=== PATIENT | male | born 1955 | race Caucasian/White ===

== ENCOUNTER 2016-12-04 11:51 | Emergency (ER) | payer OTHER ==
[2016-12-04 12:01] VITALS: O2SAT 97
[2016-12-04] MEDS ORDERED: Lopressor 25MG Tab PO ONE ×2 (12:28→12:32)
[2016-12-04] MEDS ORDERED: Zestril 5 MG PO STA (12:30)
[2016-12-04] MEDS ORDERED: Lopressor 25MG Tab ONE (12:34)
--- NOTE | 2016-12-04 12:36 | ERPHSYRPT ---
- History of Present Illness Time Seen by Provider: 12/04/16 12:22 Source: patient Exam Limitations: no limitations Patient Subjective Stated Complaint: Pt states he blew his nose this morning and it started bleeding. It started a little after 8 this morning and has not stopped. He called the [facility]ICU NURSE at the [facility] and was told to put ice on the bridge of his nose and if this didnt stop to come to the ER. He takes a 325 mg asa and 75 mg Plavix. Triage Nursing Assessment: Pt alert and oriented x3. skin pink warm and dry. afebrile. left side of nostril bleeding upon arrival. denies pain Physician History: Patient arrives with complaint of bleeding from his left naris since this morning. Patient states he blew his nose and began to have bleeding from his left naris he states he called his work nurse practitioner they told him to place cold packs on the area however he continues to have bleeding. Patient does states that he did not take his blood pressure medicines this morning. Past medical history includes hypercholesterolemia myocardial infarction high blood pressure hemorrhoids Past surgical history includes CABG cardiac stent hernia repair Social history occasional alcohol. Timing/Duration: today Severity: mild Modifying Factors: Improves With: other (patient is on aspirin and Plavix) Associated Symptoms: other (nosebleed), No nausea, No vomiting, No abdominal pain, No shortness of breath, No heartburn, No diaphoresis, No cough, No chills , No chest pain, No fever, No headaches, No loss of appetite, No malaise, No rash, No syncope, No seizure, No weakness Allergies/Adverse Reactions: milk Allergy (Verified 12/04/16 12:01) shellfish derived Allergy (Verified 12/04/16 12:01) loose stools Home Medications: Lisinopril 5 mg [Zestril 5 MG] 5 mg PO DAILY 09/17/14 [History] Metoprolol Tartrate 25 mg [Lopressor 25MG Tab] 12.5 mg PO BID 09/17/14 [ History] Simvastatin 40 mg [Zocor 40 mg] 40 mg PO DAILY 09/17/14 [History] Aspirin EC 325 mg [Ecotrin 325 MG] 325 mg PO DAILY 12/04/16 [History] Clopidogrel Bisulfate 75 mg [PLAVIX 75 MG Tablet] 75 mg PO DAILY 12/04/16 [History] Hx Tetanus, Diphtheria Vaccination/Date Given: Yes Hx Influenza Vaccination/Date Given: Yes Hx Pneumococcal Vaccination/Date Given: No - Review of Systems Constitutional: No Fever, No Chills Eyes: No Symptoms Ears, Nose, & Throat: Epistaxis, No Ear Pain, No Ear Discharge, No Hearing Changes, No Tinnitus, No Nose Pain, No Nose Congestion, No Nose Discharge, No Sinus Drainage, No Mouth Pain, No Mouth Swelling, No Loose Teeth, No Throat Pain , No Throat Swelling, No Hoarse, No Painful Swallowing, No Snoring Respiratory: No Cough, No Dyspnea Cardiac: No Chest Pain, No Edema, No Syncope Abdominal/Gastrointestinal: No Abdominal Pain, No Nausea, No Vomiting, No Diarrhea Genitourinary Symptoms: No Dysuria Musculoskeletal: No Back Pain, No Neck Pain Skin: No Rash Neurological: No Dizziness, No Focal Weakness, No Sensory Changes Psychological: No Symptoms Endocrine: No Symptoms All Other Systems: Reviewed and Negative - Past Medical History Pertinent Past Medical History: Yes Neurological History: No Pertinent History ENT History: No Pertinent History Cardiac History: High Cholesterol, Hypertension, Myocardial Infarction ([place]) Respiratory History: No Pertinent History Endocrine Medical History: No Pertinent History Musculoskeletal History: No Pertinent History GI Medical History: Hemorrhoids History: No Pertinent History Psycho-Social History: No Pertinent History Male Reproductive Disorders: No Pertinent History - Past Surgical History Past Surgical History: Yes Neuro Surgical History: No Pertinent History Cardiac: CABG, Cardiac Stent Respiratory: No Pertinent History Gastrointestinal: Hernia Repair Genitourinary: No Pertinent History Musculoskeletal: No Pertinent History Male Surgical History: No Pertinent History - Social History Smoking Status: Never smoker Exposure to second hand smoke: No Drug Use: none Patient Lives Alone: No - Nursing Vital Signs Nursing Vital Signs: Initial Vital Signs Temperature 97.7 F Temperature Source Oral Pulse Rate 59 Respiratory Rate 16 Blood Pressure 166/91 - Physical Exam General Appearance: no apparent distress, alert Eye Exam: PERRL/EOMI, eyes nml inspection Ears, Nose, Throat Exam: normal ENT inspection, TMs normal, pharynx normal, moist mucous membranes, other (patient with bleeding from left naris, ) Neck Exam: normal inspection, non-tender, supple, full range of motion Respiratory Exam: normal breath sounds, lungs clear, No respiratory distress Cardiovascular Exam: regular rate/rhythm, normal heart sounds, normal peripheral pulses Gastrointestinal/Abdomen Exam: soft, normal bowel sounds, No tenderness, No mass Back Exam: normal inspection, normal range of motion, No CVA tenderness, No vertebral tenderness Extremity Exam: normal inspection, normal range of motion, pelvis stable Neurologic Exam: alert, oriented x 3, cooperative, normal mood/affect, nml cerebellar function, nml station & gait, sensation nml, No motor deficits Skin Exam: normal color, warm, dry, No rash Lymphatic Exam: No adenopathy SpO2 Interpretation: normal (97%) SpO2: 97 Oxygen Delivery: Room Air - Course Nursing assessment & vital signs reviewed: Yes Ordered Tests: Active Orders 24 hr Category Date Time Status Ice Pack, Apply STAT Care 12/04/16 12:38 Active Medication Summary Discontinued Medications Generic Name Dose Route Start Last Admin Trade Name Freq PRN Reason Stop Dose Admin Lisinopril 5 mg 12/04/16 12:30 12/04/16 12:40 Zestril 5 Mg PO 12/04/16 12:31 5 mg STAT STA Administration Metoprolol Tartrate 112.5 mg 12/04/16 12:28 12/04/16 12:35 Lopressor 25mg Tab PO 12/04/16 12:29 Not Given STAT ONE Metoprolol Tartrate 12.5 mg 12/04/16 12:32 12/04/16 12:39 Lopressor 25mg Tab PO 12/04/16 12:33 12.5 mg STAT ONE Administration Metoprolol Tartrate Confirm 12/04/16 12:34 Lopressor 25mg Tab Administered 12/04/16 12:35 Dose 25 mg .ROUTE .STK-MED ONE Phenylephrine HCl 15 ml 12/04/16 13:17 12/04/16 13:20 Neosynephrine 0.5% Nasal [place]/Drops NS 12/04/16 13:18 15 ml STAT ONE Administration Phenylephrine HCl Confirm 12/04/16 13:19 Neosynephrine 0.5% Nasal [place]/Drops Administered 12/04/16 13:20 Dose 15 ml .ROUTE .STK-MED ONE - Progress Progress: improved Progress Note: 12/04/16 12:34 This is a 61-year-old white male with history of atherosclerotic coronary artery disease who is on aspirin and Plavix. He states he blew his nose this morning and began having bleeding from his left naris. He contacted his work nurse practitioner who told him to place cold packs on the area however he states that he is still having bleeding. On arrival patient does have some bleeding from his left naris patient is asked to blow his nose which is markedly slow down his bleeding afterwards I have had patient place pressure on his nose by pinching it. And now I have had nurse place a clamp on the patient's nose. Patient states he did not take his metoprolol or his lisinopril this morning ( patient states he didn't take any of his medicines) Will give patient metoprolol 12.5 mg and lisinopril 5 mg orally. Will have patient have pressure to the area 12/04/16 13:31 Patient with no bleeding at this time after removal of nasal clamp. Patient's blood pressure improved. Will give patient Gui-Synephrine 1 spray in the left naris. 12/04/16 13:42 Patient with no further bleeding blood pressure improved Will discharge. - Departure Time of Disposition: 13:42 Departure Disposition: Home Clinical Impression: Epistaxis Hypertension Qualifiers: Hypertension type: essential hypertension Qualified Code(s): I10 - Essential ( primary) hypertension Condition: Fair Critical Care Time: No Referrals: DEVYN JEFF [Primary Care Provider] - Instructions: Nosebleed Additional Instructions: Return home. Take your blood pressure medications as directed. Gui-Synephrine 0.5% 1 spray left naris as needed for nosebleed every 4-6 hours for one to 2 days (use sparingly) this may elevate your blood pressure. Follow-up with your family doctor or return if problems. Return for acute distress or for severe symptoms
[2016-12-04] MEDS ORDERED: NEOSYNEPHRINE 0.5% NASAL SPRAY/DROPS NS ONE (13:17)
[2016-12-04] MEDS ORDERED: NEOSYNEPHRINE 0.5% NASAL SPRAY/DROPS ONE (13:19)
[2016-12-04 13:49] VITALS: BP 148/65; PULSE 57
== END 2016-12-04 13:49 | disposition home or self-care (01) ==
LOC: ED 11:51
DX: I10 Essential (primary) hypertension (principal); R04.0 Epistaxis; Z79.899 Other long term (current) drug therapy; Z95.1 Presence of aortocoronary bypass graft; Z98.61 Coronary angioplasty status; E78.00 Pure hypercholesterolemia, unspecified; I25.2 Old myocardial infarction
CPT/HCPCS: 99282

== ENCOUNTER 2020-09-08 05:23 | Emergency (ER) | payer OTHER ==
[2020-09-08] MEDS ORDERED: Nitrostat 0.4 MG Tablet SL ONE (05:24)
--- NOTE | 2020-09-08 05:48 | ERPHSYRPT ---
- History of Present Illness Time Seen by Provider: 09/08/20 05:30 Historian: patient Exam Limitations: no limitations Physician History: Patient is a 64-year-old male presents to our ED with complaints of back pain. Patient was concerned for IN as he had a heart attack approximately 10 years ago and one stent was placed at that time. Back pain started while patient was resting. Patient took a nitroglycerin pill around 3 AM and symptoms improved from 8-3. Pain recurred and patient took another nitro at around 4:50 AM. No trauma. No fever. Patient denies chest pain. He states that his heart attack in the past caused back pain and chest pain. Patient voices no other complaints concerns at this time. Dr. Alejandra is patient's senior center director. Timing/Duration: today Activities at Onset: rest Quality: aching Location: back Chest Pain Radiation: arm Severity of Pain-Max: moderate Severity of Pain-Current: mild Modifying Factors: Improves With: nothing Associated Symptoms: back pain, No nausea, No vomiting, No palpitations, No shor tness of breath, No diaphoresis, No fever, No weakness, No dizziness Prior Chest Pain/Cardiac Workup: echocardiography Nitro Today/Relief: 0.4 mg x 2 Aspirin Treatment Today: 81 mg x 1 (Patient currently on plavix. ) Allergies/Adverse Reactions: milk Allergy (Mild, Verified 09/08/20 05:33) Diarrhea shellfish derived Allergy (Mild, Verified 09/08/20 05:33) Diarrhea Home Medications: Lisinopril 5 mg [Zestril 5 MG] 10 mg PO DAILY 09/17/14 [History] Metoprolol Tartrate 25 mg [Lopressor 25MG Tab] 12.5 mg PO BID 09/17/14 [History] Simvastatin 40 mg [Zocor 40 mg] 40 mg PO DAILY 09/17/14 [History] Clopidogrel Bisulfate 75 mg [PLAVIX 75 MG Tablet] 75 mg PO DAILY 12/04/16 [History] Aspirin 81 gm Chew [Baby Aspirin 81 mg Chew] 81 mg PO DAILY 09/08/20 [History] Hx Tetanus, Diphtheria Vaccination/Date Given: Yes Hx Influenza Vaccination/Date Given: Yes Hx Pneumococcal Vaccination/Date Given: No - Review of Systems Constitutional: No Symptoms, No Fever, No Chills Eyes: No Symptoms Ears, Nose, & Throat: No Symptoms Respiratory: No Symptoms, No Cough, No Dyspnea Cardiac: No Symptoms, No Chest Pain, No Edema, No Syncope Abdominal/Gastrointestinal: No Symptoms, No Abdominal Pain, No Nausea, No Vomiti ng, No Diarrhea Genitourinary Symptoms: No Symptoms, No Dysuria Musculoskeletal: No Symptoms, No Back Pain, No Neck Pain Skin: No Symptoms, No Rash Neurological: No Symptoms, No Dizziness, No Focal Weakness, No Sensory Changes Psychological: No Symptoms Endocrine: No Symptoms Hematologic/Lymphatic: No Symptoms Immunological/Allergic: No Symptoms All Other Systems: Reviewed and Negative - Past Medical History Pertinent Past Medical History: Yes Neurological History: No Pertinent History ENT History: No Pertinent History Cardiac History: High Cholesterol, Hypertension, Myocardial Infarction ([place]) Respiratory History: No Pertinent History Endocrine Medical History: No Pertinent History Musculoskeletal History: No Pertinent History GI Medical History: Hemorrhoids History: No Pertinent History Psycho-Social History: No Pertinent History Male Reproductive Disorders: No Pertinent History - Past Surgical History Past Surgical History: Yes Neuro Surgical History: No Pertinent History Cardiac: CABG, Cardiac Stent Respiratory: No Pertinent History Gastrointestinal: Hernia Repair Genitourinary: No Pertinent History Musculoskeletal: No Pertinent History Male Surgical History: No Pertinent History - Social History Smoking Status: Never smoker Exposure to second hand smoke: No Drug Use: none Patient Lives Alone: No - Nursing Vital Signs Nursing Vital Signs: Initial Vital Signs Temperature 98.0 F 09/08/20 05:27 Pulse Rate 59 L 09/08/20 05:27 Respiratory Rate 17 09/08/20 05:27 Blood Pressure 162/84 09/08/20 05:27 O2 Sat by Pulse Oximetry 96 09/08/20 05:27 Pain Scale Pain Intensity [Back] 2 Pain Intensity 2 - Physical Exam General Appearance: no apparent distress, alert Eye Exam: PERRL/EOMI, eyes nml inspection Ears, Nose, Throat Exam: normal ENT inspection, moist mucous membranes Neck Exam: normal inspection, non-tender, supple, full range of motion Respiratory Exam: normal breath sounds, lungs clear, No respiratory distress Cardiovascular Exam: regular rate/rhythm, normal heart sounds Gastrointestinal/Abdomen Exam: soft, No tenderness, No mass Back Exam: normal inspection, No CVA tenderness, No vertebral tenderness Extremity Exam: normal inspection, normal range of motion Neurologic Exam: alert, oriented x 3, cooperative, normal mood/affect, sensation nml, No motor deficits Skin Exam: normal color, warm, dry Lymphatic Exam: No adenopathy SpO2 Interpretation: normal SpO2: 96 O2 Delivery: Room Air - Course Nursing assessment & vital signs reviewed: Yes EKG Interpreted by Me: RATE (56), Sinus Rhythm, NORMAL AXIS, NORMAL INTERVALS - Radiology Exams Chest X-ray Interpretation: Interpreted by me (No pulmonary congestion no consolidation no infiltrates normal cardiac silhouette. Normal bony thorax. Nonacute chest x-ray.) Ordered Tests: Active Orders 24 hr Category Date Time Status Professor Of Marketing STAT Care 09/08/20 05:41 Active EKG-ER Only STAT Care 09/08/20 05:40 Active IV Insertion STAT Care 09/08/20 05:40 Active Pulse Oximetry (ED) STAT Care 09/08/20 05:40 Active CHEST 1 VIEW (PORTABLE) Stat Exams 09/08/20 05:41 Taken CBC W DIFF Stat Lab 09/08/20 05:44 Completed CMP Stat Lab 09/08/20 05:44 Completed MAGNESIUM Stat Lab 09/08/20 05:44 Completed NT PRO BNP Stat Lab 09/08/20 05:44 Completed TROPONIN Q3H Lab 09/08/20 05:44 Completed TROPONIN Q3H Lab 09/08/20 08:45 Ordered TROPONIN Q3H Lab 09/08/20 11:45 Ordered TROPONIN Q3H Lab 09/08/20 14:45 Ordered TROPONIN Q3H Lab 09/08/20 17:45 Ordered UA W/RFX UR CULTURE Stat Lab 09/08/20 05:41 Uncollected Medication Summary Generic Name Dose Route Start Last Admin Trade Name Freq PRN Reason Stop Dose Admin Nitroglycerin 0.4 mg 09/08/20 06:18 09/08/20 06:25 Nitrostat 0.4 Mg Tablet SL 10/08/20 06:17 0.4 mg PRN PRN Administration CHEST PAIN Lab/Rad Data: Laboratory Result Diagrams 09/08/20 05:44 09/08/20 05:44 Laboratory Results 09/08/20 09/08/20 09/08/20 Range/Units 05:44 05:44 05:44 WBC 6.6 (4.0-10.5) K/mm3 RBC 4.29 (4.1-5.6) M/mm3 Hgb 13.4 (12.5-18.0) gm/dl Hct 40.5 L (42-50) % MCV 94.4 (78-100) fl MCH 31.2 (26-32) pg MCHC 33.1 (32-36) g/dl RDW 13.2 (11.5-14.0) % Plt Count 189 (150-450) K/mm3 MPV 11.3 H (7.5-11.0) fl Gran % 38.7 (36.0-66.0) % Eos # (Auto) 0.14 (0-0.5) Absolute Lymphs (auto) 3.24 (1.0-4.6) Absolute Monos (auto) 0.66 (0.0-1.3) Lymphocytes % 48.8 H (24.0-44.0) % Monocytes % 9.9 (0.0-12.0) % Eosinophils % 2.1 (0.00-5.0) % Basophils % 0.5 (0.0-0.4) % Absolute Granulocytes 2.57 (1.4-6.9) Basophils # 0.03 (0-0.4) Sodium 136 L (137-145) mmol/L Potassium 4.0 (3.5-5.1) mmol/L Chloride 103 (98-107) mmol/L Carbon Dioxide 28 (22-30) mmol/L Anion Gap 8.7 (5-15) MEQ/L BUN 23 H (9-20) mg/dL Creatinine 0.98 (0.66-1.25) mg/dL Estimated GFR > 60.0 ML/MIN Glucose 121 H (74-106) mg/dL Calcium 9.1 (8.4-10.2) mg/dL Magnesium 2.2 (1.6-2.3) mg/dL Total Bilirubin 1.30 (0.2-1.3) mg/dL AST 25 (17-59) U/L ALT 20 (0-50) U/L Alkaline Phosphatase 52 (38-126) U/L Troponin I < 0.012 (0.000-0.034) ng/mL NT-Pro-B Natriuret Pep 236 (0-900) pg/mL Serum Total Protein 7.4 (6.3-8.2) g/dL Albumin 4.5 (3.5-5.0) g/dL - Progress Progress: improved Air Movement: good Progress Note: 09/08/20 06:41 Patient reassessed. Chest pain improved after nitroglycerin administration. Patient took aspirin at home currently on Plavix. Dr. Arzate reviewed patient's EKG. Initial troponin negative. Patient requesting transfer to [facility] as this is where Dr. Alejandra, our patient's cardiology practices. Case discussed with Dr. Miller ER physician at [facility] who accepts transfer. Patient agrees with transfer to [facility] for further evaluation and treatment. Patient voices no other complaints or concerns at this time. Blood Culture(s) Obtained: No Antibiotics given: No Counseled pt/family regarding: lab results, diagnosis, rad results - Departure Departure Disposition: Transfer Clinical Impression: ACS (acute coronary syndrome) Condition: Stable Critical Care Time: No Referrals: LOGAN COSME NP [Primary Care Provider] -
[2020-09-08 05:49] LABS: Absolute Neutrophil Ct (ANC) 2.57 (1.4-6.9); BASOPHIL % 0.5 % (0.0-0.4); Basophil (Absolute #) 0.03 (0-0.4); Eosinophil % 2.1 % (0.00-5.0); Eosinophil (Absolute #) 0.14 (0-0.5); Hematocrit 40.5 % (42-50); Hemoglobin 13.4 gm/dl (12.5-18.0); Lymphocyte (Absolute #) 3.24 (1.0-4.6); Lymphocytes % 48.8 % (24.0-44.0); Mean Cell Volume 94.4 fl (78-100); Mean Corpuscular Hemoglobin 31.2 pg (26-32); Mean Corpuscular Hgb Concent. 33.1 g/dl (32-36); Mean Platelet Volume 11.3 fl (7.5-11.0); Monocyte (Absolute #) 0.66 (0.0-1.3); Monocytes % 9.9 % (0.0-12.0); Neutrophil % 38.7 % (36.0-66.0); Platelet Count 189 K/mm3 (150-450); Red Blood Count 4.29 M/mm3 (4.1-5.6); Red Cell Distribution Width 13.2 % (11.5-14.0); White Blood Count 6.6 K/mm3 (4.0-10.5)
[2020-09-08 06:02] LABS: ALBUMIN 4.5 g/dL (3.5-5.0); ALKALINE PHOSPHATASE 52 U/L (38-126); ANION GAP 8.7 MEQ/L (5-15); BLOOD UREA NITROGEN 23 mg/dL (9-20); CHLORIDE 103 mmol/L (98-107); Calcium 9.1 mg/dL (8.4-10.2); Carbon Dioxide 28 mmol/L (22-30); Creatinine 1 0.98 mg/dL (0.66-1.25); EST GLOMERULAR FILTRATION RATE > 60.0 ML/MIN; Glucose 121 mg/dL (74-106); MAGNESIUM 2.2 mg/dL (1.6-2.3); NT PRO BNP 236 pg/mL (0-900); SGOT/AST 25 U/L (17-59); SGPT/ALT 20 U/L (0-50); SODIUM 136 mmol/L (137-145); Total Protein 7.4 g/dL (6.3-8.2)
[2020-09-08] MEDS ORDERED: Nitrostat 0.4 MG Tablet SL PRN (06:18)
[2020-09-08 07:07] VITALS: BP 142/78; PULSE 57; O2SAT 98
[2020-09-08 07:26] LABS: Appearance CLEAR (CLEAR); Bilirubin NEGATIVE (NEGATIVE); Blood SMALL Ery/ul (0-5); Glucose NEGATIVE (NEGATIVE); Ketones NEGATIVE (NEGATIVE); Leukocyte Esterase NEGATIVE (NEGATIVE); Mucus SLIGHT /HPF (NEGATIVE); Nitrite NEGATIVE (NEGATIVE); Protein,Urine Dip NEGATIVE (Negative); Specific Gravity 1.009 (1.005-1.025); Urobilinogen NEGATIVE mg/dL (0-1)
--- NOTE | 2020-09-08 08:36 | XRAY ---
Indication: Chest pain. Comparison: September 17, 2014. Portable chest again demonstrates normal heart and lungs with incidental CABG surgery. Bony thorax intact. No new/acute findings.
== END 2020-09-08 07:16 | disposition short-term general hospital (02) ==
LOC: ED 05:23
DX: I24.9 Acute ischemic heart disease, unspecified (principal); I10 Essential (primary) hypertension; Z79.899 Other long term (current) drug therapy; I25.2 Old myocardial infarction
CPT/HCPCS: 36000; 36415; 71045; 80053; 81001; 83735; 83880; 84484; 85025; 93005; 93041; 94760; 99285; A9270-GY

== ENCOUNTER 2022-10-08 18:51 | Emergency (ER) | payer MEDICARE, OTHER ==
[2022-10-08] MEDS ORDERED: Sodium Chloride 0.9% 1000 ML 1,000 ML IV STA (19:11)
[2022-10-08] MEDS ORDERED: Sodium Chloride 0.9% 1000 ML 1,000 ML ONE (19:16)
[2022-10-08 19:18] LABS: Absolute Neutrophil Ct (ANC) 8.35 x10^3/uL (1.4-6.9); Basophil (Absolute #) 0.02 x10^3/uL (0-0.4); Eosinophil % 0.2 % (0.00-5.0); Eosinophil (Absolute #) 0.02 x10^3/uL (0-0.5); Hematocrit 39.6 % (42-50); Hemoglobin 13.3 g/dL (12.5-18.0); Lymphocyte (Absolute #) 2.08 x10^3/uL (1.0-4.6); Lymphocytes % 19.2 % (24.0-44.0); Mean Cell Volume 93.6 fL (78-100); Mean Corpuscular Hemoglobin 31.4 pg (26-32); Mean Corpuscular Hgb Concent. 33.6 g/dL (32-36); Mean Platelet Volume 10.7 fL (7.5-11.0); Monocyte (Absolute #) 0.34 x10^3/uL (0.0-1.3); Monocytes % 3.1 % (0.0-12.0); Neutrophil % 76.9 % (36.0-66.0); Platelet Count 239 x10^3/uL (150-450); Red Blood Count 4.23 x10^6/uL (4.1-5.6); Red Cell Distribution Width 12.3 % (11.5-14.0); White Blood Count 10.9 x10^3/uL (4.0-10.5)
[2022-10-08 19:26] LABS: ALBUMIN 4.6 g/dL (3.5-5.0); ALKALINE PHOSPHATASE 58 U/L (38-126); BLOOD UREA NITROGEN 24 mg/dL (9-20); CHLORIDE 103 mmol/L (98-107); Carbon Dioxide 21 mmol/L (22-30); Creatinine 1 1.13 mg/dL (0.66-1.25); EST GLOMERULAR FILTRATION RATE > 60.0 ML/MIN; Glucose 151 mg/dL (74-106); LIPASE 77 U/L (23-300); SGOT/AST 35 U/L (17-59); SGPT/ALT 24 U/L (0-50); SODIUM 133 mmol/L (137-145); Total Protein 8.2 g/dL (6.3-8.2)
[2022-10-08 20:12] VITALS: BP 134/59
[2022-10-08 20:29] LABS: Mucus SLIGHT /HPF (NEGATIVE)
[2022-10-08 20:30] LABS: Appearance SLIGHTLY CLOUDY (CLEAR); Bilirubin SMALL (NEGATIVE); Dipstick done @ ? MAIN LAB; Glucose NEGATIVE (NEGATIVE); Ketones NEGATIVE (NEGATIVE); Nitrite NEGATIVE (NEGATIVE); Ph 5.5 (5-6); Protein,Urine Dip 100 (Negative); RBC >101 /HPF (0-2); RBC LARGE Ery/ul (0-5); Specific Gravity >=1.030 (1.005-1.025); Urobilinogen 0.2 mg/dL (0-1)
[2022-10-08 20:31] LABS: Urine Cultured Indicated? YES
[2022-10-08 21:08] VITALS: PULSE 60; O2SAT 97
[2022-10-08] MEDS ORDERED: PERCOCET TABLET 5/325MG PO ONE (21:22)
--- NOTE | 2022-10-08 21:22 | ERPHSYRPT ---
- History of Present Illness Time Seen by Provider: 10/08/22 19:10 Historian: patient Exam Limitations: no limitations Patient Subjective Stated Complaint: Flank pain Triage Nursing Assessment: Patient ambulated back to ED and transferred self to bed. Patient A+O X 3. Patient's skin pink, warm and dry. Patient complains of left side flank pain that goes into left abdomen 4/10 intermittent sharp pain since this am. Patient complains of N/V. Abdomen soft and round with BS X 4. Physician History: Patient is a 66-year-old white male who has had left flank pain and left lower quadrant pain on and off throughout the day. He has had similar back pains with an NH in the past. He is also with this had nausea and vomiting. Denies any fever chills or sweats. He says the pain that he has now in his back is not similar to the pain he had when he had an NH. Timing/Duration: today Activities at Onset: none Quality: cramping, stabbing Abdominal Pain Onset Location: LLQ, flank Pain Radiation: LLQ Severity of Pain-Max: severe Severity of Pain-Current: mild Modifying Factors: Improves With: nothing Associated Symptoms: denies symptoms Previous symptoms: no prior history Allergies/Adverse Reactions: milk Allergy (Mild, Verified 10/08/22 18:56) Diarrhea shellfish derived Allergy (Mild, Verified 10/08/22 18:56) Diarrhea Home Medications: Lisinopril 5 mg [Zestril 5 MG] 20 mg PO DAILY 09/17/14 [History] Metoprolol Tartrate 25 mg [Lopressor 25MG Tab] 12.5 mg PO BID 09/17/14 [History] Clopidogrel Bisulfate [PLAVIX 75 MG Tablet] 75 mg PO DAILY 12/04/16 [History] Aspirin 81 gm Chew [Baby Aspirin 81 mg Chew] 81 mg PO DAILY 09/08/20 [History] Hx Tetanus, Diphtheria Vaccination/Date Given: Yes Hx Influenza Vaccination/Date Given: No Hx Pneumococcal Vaccination/Date Given: No Immunizations Up to Date: Yes Travel Risk - International Travel Have you traveled outside of the country in past 3 weeks: No - Coronavirus Screening Are you exhibiting any of the following symptoms?: No Close contact with a COVID-19 positive Pt in past 14-21 Days: No - Vaccine Status Have you recieved a Covid-19 vaccination: Yes [employer]: [employer] - Vaccination Dates Date of 2cond Vaccination (if applicable): na - Review of Systems Constitutional: No Fever, No Chills Eyes: No Symptoms Ears, Nose, & Throat: No Symptoms Respiratory: No Cough, No Dyspnea Cardiac: No Chest Pain, No Edema, No Syncope Abdominal/Gastrointestinal: No Abdominal Pain, No Nausea, No Vomiting, No Diarrhea Genitourinary Symptoms: Hematuria, Flank Pain (Left), No Dysuria Musculoskeletal: No Back Pain, No Neck Pain Skin: No Rash Neurological: No Dizziness, No Focal Weakness, No Sensory Changes Psychological: No Symptoms Endocrine: No Symptoms All Other Systems: Reviewed and Negative - Past Medical History Pertinent Past Medical History: Yes Neurological History: No Pertinent History ENT History: No Pertinent History Cardiac History: High Cholesterol, Hypertension, Myocardial Infarction (NH) Respiratory History: No Pertinent History Endocrine Medical History: No Pertinent History Musculoskeletal History: No Pertinent History GI Medical History: Hemorrhoids History: No Pertinent History Psycho-Social History: No Pertinent History Male Reproductive Disorders: No Pertinent History - Past Surgical History Past Surgical History: Yes Neuro Surgical History: No Pertinent History Cardiac: CABG, Cardiac Stent Respiratory: No Pertinent History Gastrointestinal: Hernia Repair Genitourinary: No Pertinent History Musculoskeletal: No Pertinent History Male Surgical History: No Pertinent History - Social History Smoking Status: Never smoker Exposure to second hand smoke: No Drug Use: none Patient Lives Alone: No - Nursing Vital Signs Nursing Vital Signs: Initial Vital Signs Temperature 96.5 F 10/08/22 18:58 Pulse Rate 68 10/08/22 18:58 Respiratory Rate 18 10/08/22 18:58 Blood Pressure 159/71 10/08/22 18:58 O2 Sat by Pulse Oximetry 98 10/08/22 18:58 Pain Scale Pain Intensity 4 - Physical Exam General Appearance: mild distress, alert Eye Exam: PERRL/EOMI, eyes nml inspection Ears, Nose, Throat Exam: normal ENT inspection, pharynx normal, moist mucous membranes Neck Exam: normal inspection, non-tender, supple, full range of motion Respiratory Exam: normal breath sounds, lungs clear, No respiratory distress Cardiovascular Exam: regular rate/rhythm, normal heart sounds Gastrointestinal/Abdomen Exam: soft, No tenderness, No mass Back Exam: normal inspection, normal range of motion, No CVA tenderness, No vertebral tenderness Extremity Exam: normal inspection, normal range of motion, pelvis stable Neurologic Exam: alert, oriented x 3, cooperative, normal mood/affect, nml cerebellar function, sensation nml, No motor deficits Skin Exam: normal color, warm, dry SpO2 Interpretation: normal SpO2: 97 O2 Delivery: Room Air - Course Nursing assessment & vital signs reviewed: Yes - CT Exams Abdomen/Pelvis CT Interpretation: Tele-radiologist Report Ordered Tests: Active Orders 24 hr Category Date Time Status EKG-ER Only STAT Care 10/08/22 19:11 Active IV Insertion STAT Care 10/08/22 19:11 Active ABDOMEN AND PELVIS W/0 CONTRAS [CT] Stat Exams 10/08/22 19:12 Taken CHEST 1 VIEW (PORTABLE) Stat Exams 10/08/22 19:12 Taken CBC W DIFF Stat Lab 10/08/22 19:16 Completed CMP Stat Lab 10/08/22 19:16 Completed CULTURE,URINE Stat Lab 10/08/22 20:21 Received LIPASE Stat Lab 10/08/22 19:16 Completed Lactic Acid Stat Lab 10/08/22 19:20 Completed TROPONIN Q4H Lab 10/08/22 19:16 Completed TROPONIN Q4H Lab 10/08/22 23:15 Ordered TROPONIN Q4H Lab 10/09/22 03:15 Ordered UA W/RFX CULTURE Stat Lab 10/08/22 20:21 Completed Medication Summary Discontinued Medications Generic Name Dose Route Start Last Admin Trade Name Freq PRN Reason Stop Dose Admin Sodium Chloride 1,000 mls @ 999 mls/hr 10/08/22 19:11 10/08/22 20:22 Sodium Chloride 0.9% 1000 Ml IV 10/08/22 20:11 Infused .Q1H1M STA Infusion Sodium Chloride Confirm 10/08/22 19:16 Sodium Chloride 0.9% 1000 Ml Administered 10/08/22 19:17 Dose 1,000 mls @ ud .ROUTE .[facility] Lab/Rad Data: Laboratory Result Diagrams 10/08/22 19:16 10/08/22 19:16 Laboratory Results 10/08/22 10/08/22 10/08/22 Range/Units 20:21 19:20 19:16 WBC (4.0-10.5) x10^3/uL RBC (4.1-5.6) x10^6/uL Hgb (12.5-18.0) g/dL Hct (42-50) % MCV (78-100) fL MCH (26-32) pg MCHC (32-36) g/dL RDW (11.5-14.0) % Plt Count (150-450) x10^3/uL MPV (7.5-11.0) fL Gran % (36.0-66.0) % Immature Gran % (Auto) (0.00-0.4) % Nucleat RBC Rel Count (0.00-0.1) % Eos # (Auto) (0-0.5) x10^3/uL Immature Gran # (Auto) (0.00-0.03) x10^3u/L Absolute Lymphs (auto) (1.0-4.6) x10^3/uL Absolute Monos (auto) (0.0-1.3) x10^3/uL Absolute Nucleated RBC (0.00-0.01) x10^3u/L Lymphocytes % (24.0-44.0) % Monocytes % (0.0-12.0) % Eosinophils % (0.00-5.0) % Basophils % (0.0-0.4) % Absolute Granulocytes (1.4-6.9) x10^3/uL Basophils # (0-0.4) x10^3/uL Sodium (137-145) mmol/L Potassium (3.5-5.1) mmol/L Chloride (98-107) mmol/L Carbon Dioxide (22-30) mmol/L Anion Gap (5-15) MEQ/L BUN (9-20) mg/dL Creatinine (0.66-1.25) mg/dL Estimated GFR ML/MIN Glucose (74-106) mg/dL Lactic Acid 2.1 H (0.4-2.0) Calcium (8.4-10.2) mg/dL Total Bilirubin (0.2-1.3) mg/dL AST (17-59) U/L ALT (0-50) U/L Alkaline Phosphatase (38-126) U/L Troponin I < 0.012 (0.000-0.034) ng/mL Serum Total Protein (6.3-8.2) g/dL Albumin (3.5-5.0) g/dL Lipase (23-300) U/L Urinalys Dipstick Clnc MAIN LAB Urine Color BROWN A (YELLOW) Urine Appearance SLIGHTLY CLOUDY A (CLEAR) Urine pH 5.5 (5-6) Ur Specific [place] >=1.030 A (1.005-1.025) POC Urine Protein Conf 100 A (Negative) Urine Ketones NEGATIVE (NEGATIVE) Urine Nitrite NEGATIVE (NEGATIVE) Urine Bilirubin SMALL A (NEGATIVE) Urine Urobilinogen 0.2 (0-1) mg/dL Urine Leukocytes NEGATIVE (NEGATIVE) Urine WBC (Auto) 3-5 A (0-5) /HPF Urine RBC (Auto) >101 A (0-2) /HPF U Epithel Cells (Auto) NONE (FEW) /HPF Urine Bacteria (Auto) NONE (NEGATIVE) /HPF Urine RBC LARGE A (0-5) Bravo/ul Urine Mucus (Auto) SLIGHT A (NEGATIVE) /HPF Ur Culture Indicated? YES Urine Glucose NEGATIVE (NEGATIVE) mg/dL 10/08/22 10/08/22 Range/Units 19:16 19:16 WBC 10.9 H (4.0-10.5) x10^3/uL RBC 4.23 (4.1-5.6) x10^6/uL Hgb 13.3 (12.5-18.0) g/dL Hct 39.6 L (42-50) % MCV 93.6 (78-100) fL MCH 31.4 (26-32) pg MCHC 33.6 (32-36) g/dL RDW 12.3 (11.5-14.0) % Plt Count 239 (150-450) x10^3/uL MPV 10.7 (7.5-11.0) fL Gran % 76.9 H (36.0-66.0) % Immature Gran % (Auto) 0.4 (0.00-0.4) % Nucleat RBC Rel Count 0.0 (0.00-0.1) % Eos # (Auto) 0.02 (0-0.5) x10^3/uL Immature Gran # (Auto) 0.04 H (0.00-0.03) x10^3u/L Absolute Lymphs (auto) 2.08 (1.0-4.6) x10^3/uL Absolute Monos (auto) 0.34 (0.0-1.3) x10^3/uL Absolute Nucleated RBC 0.00 (0.00-0.01) x10^3u/L Lymphocytes % 19.2 L (24.0-44.0) % Monocytes % 3.1 (0.0-12.0) % Eosinophils % 0.2 (0.00-5.0) % Basophils % 0.2 (0.0-0.4) % Absolute Granulocytes 8.35 H (1.4-6.9) x10^3/uL Basophils # 0.02 (0-0.4) x10^3/uL Sodium 133 L (137-145) mmol/L Potassium 5.0 (3.5-5.1) mmol/L Chloride 103 (98-107) mmol/L Carbon Dioxide 21 L (22-30) mmol/L Anion Gap 14.0 (5-15) MEQ/L BUN 24 H (9-20) mg/dL Creatinine 1.13 (0.66-1.25) mg/dL Estimated GFR > 60.0 ML/MIN Glucose 151 H (74-106) mg/dL Lactic Acid (0.4-2.0) Calcium 9.0 (8.4-10.2) mg/dL Total Bilirubin 1.30 (0.2-1.3) mg/dL AST 35 (17-59) U/L ALT 24 (0-50) U/L Alkaline Phosphatase 58 (38-126) U/L Troponin I (0.000-0.034) ng/mL Serum Total Protein 8.2 (6.3-8.2) g/dL Albumin 4.6 (3.5-5.0) g/dL Lipase 77 (23-300) U/L Urinalys Dipstick Clnc Urine Color (YELLOW) Urine Appearance (CLEAR) Urine pH (5-6) Ur Specific [place] (1.005-1.025) POC Urine Protein Conf (Negative) Urine Ketones (NEGATIVE) Urine Nitrite (NEGATIVE) Urine Bilirubin (NEGATIVE) Urine Urobilinogen (0-1) mg/dL Urine Leukocytes (NEGATIVE) Urine WBC (Auto) (0-5) /HPF Urine RBC (Auto) (0-2) /HPF U Epithel Cells (Auto) (FEW) /HPF Urine Bacteria (Auto) (NEGATIVE) /HPF Urine RBC (0-5) Bravo/ul Urine Mucus (Auto) (NEGATIVE) /HPF Ur Culture Indicated? Urine Glucose (NEGATIVE) mg/dL - Progress Progress: improved Progress Note: 10/08/22 21:14 Results of the work-up were shared with the patient he will contact Dr. Olson in the morning to arrange urology consultation and eventually probably lithotripsy. - Departure Departure Disposition: Home Clinical Impression: Calculus of left kidney Condition: Stable Critical Care Time: No Referrals: DEVYN OLSON [Primary Care Provider] - Follow up/PCP as directed Instructions: Kidney Stones (DC) Prescriptions: Ondansetron ODT 4 MG [Zofran Odt 4 mg] 4 mg PO Q6H PRN PRN #10 tablet PRN Reason: Vomiting Oxycodone HCl/Acetaminophen [Percocet 10-325 mg Tablet] 1 each PO Q6H 3 Days #12 tablet MDD 4
[2022-10-08] MEDS ORDERED: ZOFRAN ODT 4 MG PO ONE (21:23)
[2022-10-08] MEDS ORDERED: ZOFRAN ODT 4 MG ONE (21:25)
[2022-10-08] MEDS ORDERED: PERCOCET TABLET 5/325MG ONE (21:25)
--- NOTE | 2022-10-09 08:44 | XRAY ---
Indication: Left lower quadrant pain. Multiple contiguous axial images obtained through the abdomen and pelvis without contrast. Comparison: None Lung bases demonstrates a few bibasilar tiny calcified granulomas. No infiltrate or effusion. Heart not enlarged. Noncontrasted stomach and bowel loops appear nonobstructed with normal appendix. No free fluid/air. 1.4 cm left UPJ calculus with mild hydronephrosis. 2 additional left renal micro-calculi, largest 6 mm. Also 1.2 cm left upper pole exophytic renal cyst. Right lobe liver demonstrate 1 cm hypodense cyst versus hemangioma. Remaining liver, gallbladder, pancreas, spleen, adrenal glands, kidneys, ureters, and bladder are unremarkable for noncontrast exam. Mild scattered aortoiliac calcifications without AAA. Osseous structures intact. Small bilateral fatty inguinal hernias. Impression: 1. 1.4 cm left UPJ calculus producing partial obstruction. Additional left renal micro-calculi and small cyst. 2. Incidental hepatic cyst/hemangioma, bilateral fatty inguinal hernias, and old granulomatous disease. Comment: Preliminary interpretation made by [facility]. No critical discrepancy.
--- NOTE | 2022-10-09 08:46 | XRAY ---
Indication: Pain. Comparison: September 08, 2020 Portable chest again demonstrates normal heart and lungs with incidental CABG and tiny calcified granulomas. Bony thorax intact with mild osteopenia and degenerative changes. No new/acute findings.
== END 2022-10-08 21:44 | disposition home or self-care (01) ==
LOC: ED 18:51
DX: N20.0 Calculus of kidney (principal); R10.32 Left lower quadrant pain; R11.2 Nausea with vomiting, unspecified; E78.5 Hyperlipidemia, unspecified; I10 Essential (primary) hypertension; Z79.02 Long term (current) use of antithrombotics/antiplatelets; Z79.899 Other long term (current) drug therapy
CPT/HCPCS: 36000; 36415; 71045; 74176; 80053; 81015; 83605; 83690; 84484; 85025; 87086; 93005; 96374; 99284; Q0162; A9270-GY